=== PATIENT | male | born 1965 | race Caucasian/White ===

== ENCOUNTER 2016-12-24 16:18 | Inpatient (IN) | payer MEDICAID ==
[~2016-12-24] VITALS: Ht 182.9 cm; Wt 91.6 kg
[2016-12-24] MEDS ORDERED: SODIUM CHLORIDE FLUSH 10ML SYR IVF ONE (17:00)
[2016-12-24] MEDS ORDERED: SODIUM CHLORIDE 0.9% 1,000ML IVBOLUS ONE (17:00)
[2016-12-24] MEDS ORDERED: VANCOMYCIN 2,000 MG in SODIUM CHLORIDE 0.9% 500 ML IV ONE (17:30)
[2016-12-24] MEDS ORDERED: VANCOMYCIN PER PHARMACY MC ONE (17:30)
[2016-12-24] MEDS ORDERED: PIPERACILLIN/TAZO/PMX 3.375GM 50 ML IVPB ONE (17:30)
[2016-12-24 17:35] LABS: BLOOD UREA NITROGEN 11 mg/dL (7-18)
[2016-12-24] MEDS ORDERED: PIPERACILLIN/TAZO/PMX 3.375GM 50 ML ONE (17:36)
[2016-12-24] MEDS ORDERED: BUPR1FIL PO (17:52)
[2016-12-24] MEDS ORDERED: ARIP2TAB PO (17:52)
[2016-12-24] MEDS ORDERED: albuterol inhaler (17:52)
[2016-12-24] MEDS ORDERED: TAMS-11 PO (17:52)
[2016-12-24] MEDS ORDERED: ALPR-475 PO (17:52)
[2016-12-24] MEDS ORDERED: TIOT18CA INH (17:52)
[2016-12-24] MEDS ORDERED: FLUO10CA7 PO (17:52)
[2016-12-24] MEDS ORDERED: AZITHROMYCIN 500 MG in SODIUM CHLORIDE 0.9% 250 ML IV SCH (19:00)
[2016-12-24] MEDS ORDERED: LABETALOL 20 MG/4 ML IV PRN (19:00)
[2016-12-24] MEDS ORDERED: TRAZODONE 50MG TABLET PO PRN (19:00)
[2016-12-24] MEDS ORDERED: ACETAMINOPHEN 325 MG TABLET PO PRN (19:00)
[2016-12-24] MEDS ORDERED: DOCUSATE 100 MG CAPSULE PO PRN (19:00)
[2016-12-24] MEDS ORDERED: ENOXAPARIN 40 MG/0.4 ML SQ SCH (19:00)
[2016-12-24] MEDS ORDERED: NICOTINE 21 MG/24 HR PATCH.TD24 TD SCH (19:00)
[2016-12-24] MEDS ORDERED: BISACODYL 10 MG SUPP PR PRN (19:00)
[2016-12-24] MEDS ORDERED: CEFTRIAXONE PMX 2GM/50ML 50 ML IV SCH (19:00)
[2016-12-24] MEDS ORDERED: POLYETHYLENE GLYCOL 17 GM PACKET PO PRN (19:00)
[2016-12-24] MEDS ORDERED: ONDANSETRON ODT 4 MG PO PRN (19:00)
[2016-12-24] MEDS ORDERED: OMNIPAQUE 350 MG/ML, 75ML BOTTLE ONE (19:22)
[2016-12-24 19:45] VITALS: BP 143/89
[2016-12-24] MEDS ORDERED: ALBUTEROL/IPRATROPIUM 2.5MG/0.5MG, 3 ML ONE (20:06)
[2016-12-24] MEDS: methylPREDNISolone SOD SUCC 125 MG/2 ML IVPush SCH (21:11)
[2016-12-24] MEDS: BUPRENORPHINE/NALOXONE 2-0.5MG SL SCH (21:11)
[2016-12-24] MEDS: SODIUM CHLORIDE 0.9% 1,000 ML IV SCH (21:27)
[2016-12-24] MEDS ORDERED: QUETIAPINE 100MG TABLET PO SCH (21:30)
[2016-12-25 02:43] VITALS: BP 143/94
[2016-12-25] MEDS: SODIUM CHLORIDE 0.9% 1,000 ML IV SCH ×2 (03:02→09:31)
[2016-12-25] MEDS: methylPREDNISolone SOD SUCC 125 MG/2 ML IVPush SCH ×2 (03:02→08:49)
[2016-12-25 05:25] LABS: ASPARTATE AMINO TRANSFERASE 16 U/L (15-37); BLOOD UREA NITROGEN 9 mg/dL (7-18)
[2016-12-25 07:47] VITALS: BP 126/78
[2016-12-25] MEDS: BUPRENORPHINE/NALOXONE 2-0.5MG SL SCH (08:49)
[2016-12-25] MEDS ORDERED: TAMSULOSIN 0.4 MG CAP.ER.24H PO SCH (09:00)
[2016-12-25] MEDS ORDERED: ALBUTEROL/IPRATROPIUM 2.5MG/0.5MG, 3 ML NPPB SCH (09:00)
[2016-12-25] MEDS ORDERED: ARIPIPRAZOLE 2 MG TABLET PO SCH (09:00)
[2016-12-25] MEDS ORDERED: AZIT500T4 PO (10:53)
[2016-12-25] MEDS ORDERED: GUAI-161 PO (10:53)
[2016-12-25] MEDS ORDERED: ALBU8.5H3 INH (10:53)
[2016-12-25] MEDS ORDERED: METH4TAB2 PO (10:53)
[2016-12-25] MEDS ORDERED: IPRA3AMP NPPB (10:53)
[2016-12-25] MEDS ORDERED: CEFD300C2 PO (10:53)
== END 2016-12-25 13:54 | disposition home or self-care (01) | DRG 871 ==
LOC: ED 18:14 → EDIP 18:16 → 4NOR 19:25 → DCLOUNGE 12-25 13:30
PROVIDERS: ADMIT Internal Medicine
DX: A41.9 Sepsis, unspecified organism (principal); E43 Unspecified severe protein-calorie malnutrition; J18.9 Pneumonia, unspecified organism; J96.01 Acute respiratory failure with hypoxia; J44.0 Chronic obstructive pulmonary disease with (acute) lower respiratory infection; E87.1 Hypo-osmolality and hyponatremia; J44.1 Chronic obstructive pulmonary disease with (acute) exacerbation; B18.2 Chronic viral hepatitis C; F10.10 Alcohol abuse, uncomplicated; F17.210 Nicotine dependence, cigarettes, uncomplicated; F39 Unspecified mood [affective] disorder; I10 Essential (primary) hypertension; N40.0 Benign prostatic hyperplasia without lower urinary tract symptoms; D64.9 Anemia, unspecified; F11.10 Opioid abuse, uncomplicated; K59.00 Constipation, unspecified; Z82.49 Family history of ischemic heart disease and other diseases of the circulatory system; Z86.61 Personal history of infections of the central nervous system; Z86.14 Personal history of Methicillin resistant Staphylococcus aureus infection; Z79.899 Other long term (current) drug therapy; Z71.6 Tobacco abuse counseling; Z68.27 Body mass index [BMI] 27.0-27.9, adult
CPT/HCPCS: 36415; 71010; 71260; 80048; 80053; 82040; 83605; 83735; 84439; 84443; 85025; 87040; 93005; 94640; 96361; 96365; 96366; J0456; J0696; J1650; J2543; J3370; J7620; Q9967; J2930; J7030; J7040; J7050

== ENCOUNTER 2017-03-13 11:27 | Emergency (ER) | payer MEDICAID ==
[~2017-03-13] VITALS: Ht 180.3 cm; Wt 100.7 kg
[~2017-03-13 11:27] MED LIST: ALBU8.5H3 INH; ALPR-475 PO; ARIP2TAB PO; AZIT500T77 PO; BUPR1FIL PO; CEFD300C37 PO; FLUO10CA7 PO; GUAI-161 PO; IPRA3AMP NPPB; METH4TAB2 PO; TAMS-11 PO; TIOT18CA INH; albuterol inhaler
[2017-03-13] MEDS ORDERED: ALBUTEROL/IPRATROPIUM 2.5MG/0.5MG, 3 ML ONE ×2 (11:52→12:14)
[2017-03-13] MEDS: ALBUTEROL/IPRATROPIUM 2.5MG/0.5MG, 3 ML NPPB SCH ×2 (11:52→12:20)
[2017-03-13] MEDS ORDERED: LEVOFLOXACIN/PMX 750MG/150ML 150 ML ONE (12:22)
[2017-03-13] MEDS ORDERED: methylPREDNISolone SOD SUCC 125 MG/2 ML ONE (12:22)
[2017-03-13 12:35] LABS: BLOOD UREA NITROGEN 14 mg/dL (7-18)
[2017-03-13 12:41] LABS: ASPARTATE AMINO TRANSFERASE 76 U/L (15-37)
[2017-03-13 12:47] LABS: IS PT STATUS REG ER OR PRE ER? YES
[2017-03-13] MEDS ORDERED: methylPREDNISolone SOD SUCC 125 MG/2 ML IVP ONE (13:00)
[2017-03-13] MEDS ORDERED: LEVOFLOXACIN/PMX 750MG/150ML 150 ML IVPB ONE (13:00)
[2017-03-13] MEDS ORDERED: SODIUM CHLORIDE FLUSH 10ML SYR IVF ONE (13:00)
[2017-03-13 14:10] VITALS: BP 113/67
== END 2017-03-13 14:24 | disposition left against medical advice (07) ==
LOC: ED 14:00
DX: A41.9 Sepsis, unspecified organism (principal); R65.20 Severe sepsis without septic shock; J96.01 Acute respiratory failure with hypoxia; J18.0 Bronchopneumonia, unspecified organism
CPT/HCPCS: 36415; 71010; 80053; 83605; 83880; 84484; 85025; 85610; 85730; 87040; 93005; 94640; 96365; 96366; 96375; 99285; J1956; J2930; J7620